=== PATIENT | female | born 2005 | race Caucasian/White ===

== ENCOUNTER → 2024-11-19 | Outpatient (REF) | payer OTHER ==
[2024-11-21 01:35] VITALS: TEMP 97.9
[2024-11-21 02:05] VITALS: BP 130/62; O2SAT 97
== END ==
LOC: M LAB REF 12:30
PROVIDERS: ATTEND Physician Assistant Medical
DX: J02.9 Acute pharyngitis, unspecified (principal)

== ENCOUNTER 2024-11-20 18:53 | Observation (INO) | payer OTHER ==
[~2024-11-20] VITALS: Ht 162.6 cm; Wt 97.2 kg
[~2024-11-20 18:53] MED LIST: LIDOCAINE W/EPINEPHrine 1% 20 ML VIAL ONE
[2024-11-20] MEDS: NS (Normal Saline) 0.9% 1,000 ML IV ONE (20:11)
[2024-11-20] MEDS: KETOROLAC 30 MG/ML 1 ML VIAL IV ONE (20:11)
[2024-11-20 20:18] LABS: BASO % 0.2 % (0.0-1.0); EOS % 0.1 % (0.0-3.0); HEMOGLOBIN 12.2 g/dl (12.0-15.5); LYMPH # 1.9 10^3/uL (1.5-5.0); LYMPH % 9.9 % (24.0-44.0); MEAN CORPUSCULAR HEMOGLOBIN 29.3 pg (27.0-33.0); MEAN CORPUSCULAR VOLUME 88.7 fl (80.0-96.0); MONO # 1.5 10^3/uL (0.0-0.8); MONO % 7.9 % (2.0-8.0); NEUTROPHILS # 15.8 10^3/uL (1.5-8.5); NEUTROPHILS % 81.4 % (36.0-66.0); PLATELET COUNT, AUTOMATED 305 10^3/uL (150-450); RED BLOOD COUNT 4.17 10^6/uL (4.00-5.40); WHITE BLOOD COUNT 19.3 10^3/uL (4.0-10.0)
[2024-11-20 20:33] LABS: BLOOD UREA NITROGEN 9 MG/DL (9-23); CALCIUM LEVEL 9.7 MG/DL (8.5-10.1); CARBON DIOXIDE LEVEL 28 MMOL/L (20-31); CHLORIDE LEVEL 104 MMOL/L (98-107); CREATININE FOR GFR 0.56 MG/DL (0.55-1.30); GLOMERULAR FILTRATION RATE > 90.0 (>60); GLUCOSE, FASTING 105 MG/DL (60-100); POTASSIUM SERUM 4.9 MMOL/L (3.5-5.1); SODIUM LEVEL 141 MMOL/L (136-145)
[2024-11-20] MEDS ORDERED: PRED20TA PO (20:42)
[2024-11-20] MEDS ORDERED: IBUP1TAB7 PO (20:42)
[2024-11-20] MEDS ORDERED: AZIT-12 PO (20:42)
[2024-11-20 20:49] LABS: MONO SCRN NEGATIVE (NEGATIVE)
[2024-11-20] MEDS ORDERED: ISOVUE-370 76% 100 ML VIAL As Ordered ONE (22:07)
[2024-11-20] MEDS: AMPICILLIN SOD/SULBACTAM SOD 3 GM in DEXTROSE 5% (D5W) MINI-BAG PLU 100 ML IV ONE (22:24)
[2024-11-20] MEDS: ONDANSETRON 4MG 2ML VIAL IV ONE (23:05)
[2024-11-20] MEDS: dexAMETHasone 4 MG/ML 1 ML VIAL IV ONE (23:05)
[2024-11-20] MEDS: MORPHINE 2 MG/ML 1 ML VIAL IV ONE (23:06)
[2024-11-21] VITALS (7 sets, daily range): BP systolic 114–128; BP diastolic 56–59; TEMP 97.7–98.1; O2SAT 94–97
[2024-11-21] MEDS ORDERED: LIDOCAINE W/EPINEPHrine 1% 20 ML VIAL As Ordered ONE (00:45)
[2024-11-21] MEDS ORDERED: ROCURONIUM BROMIDE 50MG/5ML VIAL As Ordered ONE (00:49)
[2024-11-21] MEDS ORDERED: fentaNYL 100 MCG/2 ML INJECTION As Ordered ONE (00:49)
[2024-11-21] MEDS ORDERED: ONDANSETRON 4MG 2ML VIAL As Ordered ONE (00:49)
[2024-11-21] MEDS ORDERED: dexAMETHasone 4 MG/ML 1 ML VIAL As Ordered ONE (00:49)
[2024-11-21] MEDS ORDERED: METOCLOPRAMIDE INJ 10 MG/2 ML VIAL As Ordered ONE (00:49)
[2024-11-21] MEDS ORDERED: SUGAMMADEX SODIUM 500 MG/5 ML VIAL As Ordered ONE (00:49)
[2024-11-21] MEDS ORDERED: MIDAZOLAM INJ 2 MG/2 ML VIAL As Ordered ONE (00:49)
[2024-11-21] MEDS ORDERED: propofoL 200 MG/20 ML VIAL As Ordered ONE (00:49)
[2024-11-21] MEDS ORDERED: LIDOCAINE 2% 100 MG/5 ML SDV (FOR ANES.) As Ordered ONE (00:49)
[2024-11-21] MEDS ORDERED: ACETAMINOPHEN 1000MG/100ML IV BAG As Ordered ONE (00:49)
[2024-11-21] MEDS ORDERED: ACETAMINOPHEN 325 MG TAB PO PRN (02:05)
[2024-11-21] MEDS ORDERED: ONDANSETRON 4MG 2ML VIAL IV PRN (02:15)
[2024-11-21] MEDS: AMPICILLIN SOD/SULBACTAM SOD 3 GM in DEXTROSE 5% (D5W) MINI-BAG PLU 100 ML IV SCH (04:40)
[2024-11-21] MEDS: dexAMETHasone 4 MG/ML 1 ML VIAL IV SCH (05:18)
[2024-11-21] MEDS ORDERED: IBUP-1730 PO (08:53)
[2024-11-21] MEDS ORDERED: HOME MED LIST COMPLETE! XX SCH (08:55)
[2024-11-21 09:01] LABS: BASO % 0.1 % (0.0-1.0); HEMATOCRIT 34.5 % (36.0-47.0); HEMOGLOBIN 11.3 g/dl (12.0-15.5); LYMPH # 0.7 10^3/uL (1.5-5.0); LYMPH % 4.3 % (24.0-44.0); MEAN CORPUSCULAR HGB CONC 32.8 g/dl (32.0-36.5); MEAN CORPUSCULAR VOLUME 88.7 fl (80.0-96.0); MONO # 0.2 10^3/uL (0.0-0.8); MONO % 1.5 % (2.0-8.0); NEUTROPHILS # 14.8 10^3/uL (1.5-8.5); NEUTROPHILS % 93.4 % (36.0-66.0); PLATELET COUNT, AUTOMATED 292 10^3/uL (150-450); RED BLOOD COUNT 3.89 10^6/uL (4.00-5.40); WHITE BLOOD COUNT 15.8 10^3/uL (4.0-10.0)
[2024-11-21 09:21] LABS: BLOOD UREA NITROGEN 11 MG/DL (9-23); CALCIUM LEVEL 9.5 MG/DL (8.5-10.1); CARBON DIOXIDE LEVEL 26 MMOL/L (20-31); CHLORIDE LEVEL 103 MMOL/L (98-107); CREATININE FOR GFR 0.52 MG/DL (0.55-1.30); GLOMERULAR FILTRATION RATE > 90.0 (>60); GLUCOSE, FASTING 208 MG/DL (60-100); MAGNESIUM LEVEL 1.7 MG/DL (1.8-2.4); POTASSIUM SERUM 4.5 MMOL/L (3.5-5.1); SODIUM LEVEL 139 MMOL/L (136-145)
[2024-11-21] MEDS ORDERED: AMOX875T2 PO (12:39)
== END 2024-11-21 14:30 | disposition home or self-care (01) ==
LOC: M ED 18:53 → M SDC 23:50 → M ED INP 23:51 → MERGE 23:51 → M MS5PR 11-21 02:25
PROVIDERS: ADMIT Family Medicine; ATTEND Internal Medicine
DX: J36 Peritonsillar abscess (principal)
CPT/HCPCS: 36415; 42700; 70491; 80048; 83735; 84702; 85025; 86308; 87070; 87430; 87880; 96365; 96366; 96375; 96376; 99284; J0131; J0295; J1100; J1885; J2250; J2405; J2765; J3010; Q9967